=== PATIENT | male | born 1985 | race Caucasian/White ===

== ENCOUNTER 2017-03-10 19:38 | Inpatient (IN) | payer OTHER ==
[2017-03-10 21:28] VITALS: BMI 23.7
--- NOTE | 2017-03-10 22:01 | HP ---
COWS - Scale Resting Pulse: 0= [place] 80 or Below (+) Sweatin= Chills/Flushing Restless Observation: 3= Extraneous Movement Pupil Size: 0= Normal to Room Light Bone or Joint Aches: 2= Severe Diffuse Aches Runny Nose/ Eye Tearin= Runny Nose/Eyes GI Upset > 30mins: 2= Nausea/Diarrhea Tremor Observation: 2= Slight Tremor Visible Yawning Observation: 1= 1-2x During Session Anxiety or Irritability: 2=Irritable/Anxious Goose Flesh Skin: 0=Smooth Skin COWS Score: 15 Admission ROS S - HPI Chief Complaint: WITHDRAWAL SX Allergies/Adverse Reactions: Allergies Allergy/AdvReac Type Severity Reaction Status Date / Time No Known Drug Allergies Allergy Verified 03/10/17 23:56 History of Present Illness: 31 YEARS OLD MALE WITH LONG HISTORY OF HEROIN DEPENDENCE HAS DEPRESSION IS ADMITTED TO DETOX Exam Limitations: No Limitations - Ebola screening Have you traveled outside of the country in the last 21 days: No Have you had contact with anyone from an Ebola affected area: No Have you been sick,other than usual withdrawal symptoms: No Do you have a fever: No - Review of Systems Constitutional: Changes in sleep, Weight Stable EENT: reports: No Symptoms Reported Respiratory: reports: No Symptoms reported Cardiac: reports: No Symptoms Reported GI: reports: Diarrhea, Nausea, Poor Fluid Intake, Abdominal cramping : reports: No Symptoms Reported Musculoskeletal: reports: Back Pain, Joint Pain, Muscle Pain, Neck Pain Integumentary: reports: No Symptoms Reported Neuro: reports: Tremors Endocrine: reports: No Symptoms Reported Hematology: reports: No Symptoms Reported Psychiatric: reports: Judgement Intact, Orientated x3, Anxious, Depressed Other Systems: Reviewed and Negative Patient History - Patient Medical History Hx Anemia: No Hx Asthma: No (currently not on treatment) Hx Chronic Obstructive Pulmonary Disease (COPD): No Hx Cancer: No Hx Cardiac Disorders: No Hx Congestive Heart Failure: No Hx Hypertension: No Hx Hypercholesterolemia: No Hx Pacemaker: No HX Cerebrovascular Accident: No Hx Seizures: No Hx Dementia: No Hx Diabetes: No Hx Gastrointestinal Disorders: No Hx Liver Disease: No Hx Genitourinary Disorders: No Hx Sexually Transmitted Disorders: No Hx Renal Disease (ESRD): No Hx Thyroid Disease: No Hx Human Immunodeficiency Virus (HIV): No Hx Hepatitis C: No Hx Depression: Yes Hx Suicide Attempt: No Hx Bipolar Disorder: No Hx Schizophrenia: No - Patient Surgical History Past Surgical History: No Hx Neurologic Surgery: No Hx Cataract Extraction: No Hx Cardiac Surgery: No Hx Lung Surgery: No Hx Breast Surgery: No Hx Breast Biopsy: No Hx Abdominal Surgery: No Hx Appendectomy: No Hx Cholecystectomy: No Hx Genitourinary Surgery: No Hx Orthopedic Surgery: No - PPD History Previous Implant?: Yes Documented Results: Negative w/proof Implanted On Prior [facility] Admission?: Yes Date: 01/02/12 Results: 0 mm PPD to be Administered?: Yes - Smoking Cessation Smoking history: Former smoker Have you smoked in the past 12 months: No Aproximately how many cigarettes per day: 0 If you are a former smoker, when did you quit?: 02/05/2012 Cigars Per Day: 0 Hx Chewing Tobacco Use: No Initiated information on smoking cessation: No - Substance & Tx. History Hx Alcohol Use: No Hx Substance Use: Yes Substance Use Type: Opiates Hx Substance Use Treatment: Yes (2012 [facility] - Substances Abused Heroin Route: Inhalation Frequency: Daily Amount used: 4 BUNDLES Age of first use: 16 Date of Last Use: 03/10/17 Family Disease History - Family Disease History Family Disease History: Diabetes: Mother Admission Physical Exam S - Vital Signs Vital Signs: Vital Signs - 24 hr 03/10/17 21:24 Temperature 98.7 F Pulse Rate 75 Respiratory 19 Rate Blood Pressure 133/96 - Physical General Appearance: Yes: Appropriately Dressed, Moderate Distress, Thin, Tremorous, Irritable, Sweating, Anxious HEENTM: Yes: Hearing grossly Normal, Normal ENT Inspection, Normocephalic, Normal Voice Respiratory: Yes: Chest Non-Tender, Lungs Clear, Normal Breath Sounds, No Respiratory Distress, No Accessory Muscle Use Neck: Yes: Supple, Trachea in good position Breast: Yes: Breasts Symetrical Cardiology: Yes: Regular Rhythm, Regular Rate, S1, S2 Abdominal: Yes: Non Tender, Soft, Increased Bowel Sounds Genitourinary: Yes: Within Normal Limits Back: Yes: Normal Inspection Musculoskeletal: Yes: full range of Motion, Gait Steady, Back pain, Muscle Pain Extremities: Yes: Normal Inspection, Normal Range of Motion, Non-Tender, Tremors Neurological: Yes: Fully Oriented, Alert, Motor Strength 5/5, Normal Response, Depressed Affect Integumentary: Yes: Warm Lymphatic: Yes: Within Normal Limits - Diagnostic (1) Opioid dependence with withdrawal Current Visit: Yes Status: Acute (2) Depression (emotion) Current Visit: Yes Status: Suspected Qualifiers: Depression Type: dysthymia Qualified Code(s): F34.1 - Dysthymic disorder (3) Chronic back pain Current Visit: Yes Status: Chronic Qualifiers: Back pain location: low back pain Back pain laterality: bilateral Sciatica presence: without sciatica Qualified Code(s): M54.5 - Low back pain; G89.29 - Other chronic pain; G89.29 - Other chronic pain Cleared for Admission [facility] - Detox or Rehab [facility] Level of Care: Medically Managed Detox Regimen/Protocol: Methadone [facility] Breath Alcohol Content Breath Alcohol Content: 0 Urine Drug Screen - Results Drug Screen Negative: No Urine Drug Screen Results: OPI-Opiates
[2017-03-10] MEDS ORDERED: ACETAMINOPHEN 325 MG TABLET (FP) PO PRN (22:20)
[2017-03-10] MEDS ORDERED: IBUPROFEN 400 MG TABLET (FP) PO PRN (22:20)
[2017-03-10] MEDS ORDERED: P-EPHED 60MG/TRIPROLIDI 2.5MG TABLET PO PRN (22:20)
[2017-03-10] MEDS ORDERED: diazePAM 5 MG TABLET PO PRN (22:20)
[2017-03-10] MEDS ORDERED: MENTHOL/PHENOL 1 EACH UD MM PRN (22:20)
[2017-03-10] MEDS ORDERED: MAG HYDROX/AL HYDROX/SIMETH 30 ML UNIT-DOSE CUP PO PRN (22:20)
[2017-03-10] MEDS ORDERED: MAGNESIUM CITRATE 300 ML BOTTLE PO PRN (22:20)
[2017-03-10] MEDS ORDERED: LOPERAMIDE HCL 2 MG CAPSULE PO PRN (22:20)
[2017-03-10] MEDS ORDERED: MAGNESIUM HYDROX 2400MG/30ML ORAL SUSPENSION 30 ML CUP PO PRN (22:20)
[2017-03-10] MEDS ORDERED: guaiFENesin/D-METHORPHAN HB 10 ML UNIT-DOSE CUPS PO PRN (22:20)
[2017-03-10] MEDS ORDERED: METHADONE HCL 10 MG TABLET (FOR DETOX USE ONLY) PO ONE ×2 (22:20→23:00)
[2017-03-11] MEDS ORDERED: METHADONE HCL 10 MG TABLET (FOR DETOX USE ONLY) PO ONE ×4 (00:04→23:00)
[2017-03-11] MEDS: diazePAM 5 MG TABLET PO PRN ×5 (00:48→22:07)
[2017-03-11] MEDS: GABAPENTIN 100 MG CAPSULE (FP) PO SCH ×4 (00:48→22:07)
--- NOTE | 2017-03-11 08:18 | CONSULT ---
[facility] Psychiatric Consult - Data Date of interview: 03/11/17 Admission source: [facility] Identifying data: This is 31 years old male with no psychiatric hospitalization hikstory biontoxicated with: Opioids Substance Abuse History: - Smoking Cessation. Smoking history: Former smoker. Have you smoked in the past 12 months: No. Aproximately how many cigarettes per day: 0. If you are a former smoker, when did you quit?: 02/05/2012. Cigars Per Day: 0. Hx Chewing Tobacco Use: No. Initiated information on smoking cessation: No. - Substance & Tx. History. Hx Alcohol Use: No. Hx Substance Use: Yes. Substance Use Type: Opiates. Hx Substance Use Treatment: Yes (2012 [facility]). - Substances Abused. Heroin. Route: Inhalation. Frequency: Daily. Amount used: 4 BUNDLES. Age of first use: 16. Date of Last Use: 03/10/17 Medical History: LBP history Psychiatric History: Denies Physical/Sexual Abuse/Trauma History: Denies Additional Comment: Patient reports taking prior [facility] admission: Gabapentine 100mg po tid Mental Status Exam - Mental Status Exam Alert and Oriented to: Person Cognitive Function: Fair Patient Appearance: Unkempt Mood: Sad Affect: Mood Congruent Patient Behavior: Cooperative Speech Pattern: Appropriate Voice Loudness: Normal Thought Process: Circumstantial Thought Disorder: Being Controlled Hallucinations: Denies Suicidal Ideation: Denies Homicidal Ideation: Denies Insight/Judgement: Fair Sleep: Difficulty falling asleep Appetite: Fair Muscle strength/Tone: Mild Hypertonicity Gait/Station: Shuffling Additional Comments: Gabapentine 100mg po tid Psychiatric Findings - Problem List ([place] 1, 2,3) (1) Drug-induced mood disorder Current Visit: Yes Status: Suspected (2) Opioid dependence with withdrawal Current Visit: Yes Status: Acute (3) Nicotine dependence Current Visit: No Status: Active (4) Opioid dependence Current Visit: No Status: Active - Initial Treatment Plan Initial Treatment Plan: Gabapentine 100mg po tid
[2017-03-11 10:38] LABS: URINE APPEARANCE CLEAR; URINE BILIRUBIN NEGATIVE (NEGATIVE); URINE BLOOD NEGATIVE (NEGATIVE); URINE COLOR LTYELLOW; URINE GLUCOSE (UA) NEGATIVE (NEGATIVE); URINE KETONE NEGATIVE (NEGATIVE); URINE LEUK ESTERASE NEGATIVE (NEGATIVE); URINE NITRITE NEGATIVE (NEGATIVE); URINE PROTEIN NEGATIVE (NEGATIVE); URINE UROBILINOGEN NEGATIVE mg/dL (0.2-1.0)
[2017-03-11 10:42] LABS: HEMATOCRIT 41.4 % (35.4-49); HEMOGLOBIN 13.5 GM/dL (11.7-16.9); MCH 28.8 pg (25.7-33.7); MCHC 32.7 g/dl (32.0-35.9); MEAN CELL VOLUME 88.3 fl (80-96); MEAN PLT VOLUME 10.1 fl (7.5-11.1); PLATELET COUNT 187 K/MM3 (134-434); RBC 4.69 M/mm3 (4.00-5.60); WHITE BLOOD COUNT 8.3 K/mm3 (4.0-10.0)
[2017-03-11] MEDS: PRENATAL VITAMINS W/ FOLIC ACID TABLET (FP) PO SCH (10:47)
[2017-03-11 10:54] LABS: CHLORIDE 102 mmol/L (98-107); POTASSIUM 4.2 mmol/L (3.5-5.1); SODIUM 141 mmol/L (136-145)
[2017-03-11 11:05] LABS: ALK PHOS 65 U/L (45-117); ANION GAP 10 (8-16); BILIRUBIN,TOTAL 0.4 mg/dL (0.2-1.0); BLOOD UREA NITROGEN 14 mg/dL (7-18); CALCIUM 9.2 mg/dL (8.5-10.1); CO2 29 mmol/L (21-32); CREATININE 1.1 mg/dL (0.7-1.3); GLUCOSE,RANDOM 99 mg/dL (74-106); SGOT/AST 19 U/L (15-37); SGPT/ALT 28 U/L (12-78); TOT PROT 7.1 g/dl (6.4-8.2)
--- NOTE | 2017-03-11 12:36 | EKG ---
Test Reason : Blood Pressure : / mmHG Vent. Rate : 064 BPM Atrial Rate : 064 BPM P-R Int : 136 ms QRS Dur : 086 ms QT Int : 394 ms P-R-T Axes : 037 056 036 degrees QTc Int : 406 ms NORMAL SINUS RHYTHM NORMAL ECG NO PREVIOUS ECGS AVAILABLE Confirmed by ASHLEY SALAS MD ([id number]) on 03/11/2017 12:35:33 PM Referred By: Confirmed By:ASHLEY SALAS MD
--- NOTE | 2017-03-11 14:21 | PN ---
[facility] CIWA - CIWA Score Nausea/Vomitin-Mild Nausea/No Vomiting Muscle Tremors: 4-Moderate,w/Arms Extend Anxiety: 4-Mod. Anxious/Guarded Agitation: 0-Normal Activity Paroxysmal Sweats: 3 Orientation: 0-Oriented Tacttile Disturbances: 1-Very Mild Itch/Numbness Auditory Disturbances: 0-None Visual Disturbances: 1-Very Mild Sensitivity Headache: 0-None Present CIWA-Ar Total Score: 14 S Progress Note (SOAP) Subjective: Interrupted sleep, chills, body aches sweat Objective: 03/11/17 14:20 Vital Signs Temperature 97.7 F 03/11/17 09:28 Pulse Rate 73 03/11/17 09:28 Respiratory Rate 18 03/11/17 09:28 Blood Pressure 127/75 03/11/17 09:28 O2 Sat by Pulse Oximetry (%) Laboratory Last Values WBC 8.3 K/mm3 (4.0-10.0) 03/11/17 07:00 RBC 4.69 M/mm3 (4.00-5.60) 03/11/17 07:00 Hgb 13.5 GM/dL (11.7-16.9) 03/11/17 07:00 Hct 41.4 % (35.4-49) 03/11/17 07:00 MCV 88.3 fl (80-96) 03/11/17 07:00 MCH 28.8 pg (25.7-33.7) 03/11/17 07:00 MCHC 32.7 g/dl (32.0-35.9) 03/11/17 07:00 RDW 13.0 % (11.9-15.9) 03/11/17 07:00 Plt Count 187 K/MM3 (134-434) D 03/11/17 07:00 MPV 10.1 fl (7.5-11.1) 03/11/17 07:00 Sodium 141 mmol/L (136-145) 03/11/17 07:00 Potassium 4.2 mmol/L (3.5-5.1) 03/11/17 07:00 Chloride 102 mmol/L (98-107) 03/11/17 07:00 Carbon Dioxide 29 mmol/L (21-32) 03/11/17 07:00 Anion Gap 10 (8-16) 03/11/17 07:00 BUN 14 mg/dL (7-18) 03/11/17 07:00 Creatinine 1.1 mg/dL (0.7-1.3) D 03/11/17 07:00 Creat Clearance w eGFR > 60 (>60) 03/11/17 07:00 Random Glucose 99 mg/dL (74-106) 03/11/17 07:00 Calcium 9.2 mg/dL (8.5-10.1) 03/11/17 07:00 Total Bilirubin 0.4 mg/dL (0.2-1.0) D 03/11/17 07:00 AST 19 U/L (15-37) 03/11/17 07:00 ALT 28 U/L (12-78) D 03/11/17 07:00 Alkaline Phosphatase 65 U/L (45-117) 03/11/17 07:00 Total Protein 7.1 g/dl (6.4-8.2) 03/11/17 07:00 Albumin 4.0 g/dl (3.4-5.0) 03/11/17 07:00 Urine Color Ltyellow 03/11/17 07:00 Urine Appearance Clear 03/11/17 07:00 Urine pH 6.0 (5.0-8.0) 03/11/17 07:00 Ur Specific [place] 1.018 (1.001-1.035) 03/11/17 07:00 Urine Protein Negative (NEGATIVE) 03/11/17 07:00 Urine Glucose (UA) Negative (NEGATIVE) 03/11/17 07:00 Urine Ketones Negative (NEGATIVE) 03/11/17 07:00 Urine Blood Negative (NEGATIVE) 03/11/17 07:00 Urine Nitrite Negative (NEGATIVE) 03/11/17 07:00 Urine Bilirubin Negative (NEGATIVE) 03/11/17 07:00 Urine Urobilinogen Negative mg/dL (0.2-1.0) 03/11/17 07:00 Ur Leukocyte Esterase Negative (NEGATIVE) 03/11/17 07:00 Labs noted Assessment: 03/11/17 14:20 AOx3 ambulating no distress withdrawal symptoms Plan: continue detox increase fluids
[2017-03-11] MEDS: THIAMINE HCL 100 MG TABLET (FP) PO SCH (22:07)
[2017-03-12] MEDS: GABAPENTIN 100 MG CAPSULE (FP) PO SCH ×3 (05:50→22:06)
[2017-03-12] MEDS: diazePAM 5 MG TABLET PO PRN ×4 (05:50→22:06)
[2017-03-12] MEDS ORDERED: diphenhydrAMINE HCL 50 MG CAPSULE PO PRN (08:59)
[2017-03-12] MEDS ORDERED: METHADONE HCL 10 MG TABLET (FOR DETOX USE ONLY) PO ONE (10:00)
[2017-03-12] MEDS ORDERED: METHADONE HCL 5 MG TABLET (FOR DETOX USE ONLY) PO ONE (10:00)
[2017-03-12] MEDS: PRENATAL VITAMINS W/ FOLIC ACID TABLET (FP) PO SCH (10:29)
--- NOTE | 2017-03-12 10:35 | PN ---
[facility] COWS - Scale Resting Pulse: 0= [place] 80 or Below Sweatin=Flushed/Facial Moisture Restless Observation: 1= Difficult to Sit Still Pupil Size: 0= Normal to Room Light Bone or Joint Aches: 2= Severe Diffuse Aches Runny Nose/ Eye Tearin= Nasal Congestion GI Upset > 30mins: 0= None Tremor Observation of Outstretched Hands: 2= Slight Tremor Visible Yawning Observation: 2= >3x During Session Anxiety or Irritability: 2=Irritable/Anxious Goose Flesh Skin: 0=Smooth Skin COWS Score: 12 [facility] Progress Note (SOAP) Subjective: interrupted sleep/insomnia agitation body aches sweats Objective: 03/12/17 10:34 Vital Signs Temperature 97.3 F L 03/12/17 07:37 Pulse Rate 59 L 03/12/17 07:37 Respiratory Rate 16 03/12/17 07:37 Blood Pressure 149/86 03/12/17 07:37 O2 Sat by Pulse Oximetry (%) Laboratory Tests 03/11/17 03/11/17 03/11/17 07:00 07:00 07:00 WBC 8.3 RBC 4.69 Hgb 13.5 Hct 41.4 MCV 88.3 MCH 28.8 MCHC 32.7 RDW 13.0 Plt Count 187 D MPV 10.1 Sodium 141 Potassium 4.2 Chloride 102 Carbon Dioxide 29 Anion Gap 10 BUN 14 Creatinine 1.1 D Creat Clearance w eGFR > 60 Random Glucose 99 Calcium 9.2 Total Bilirubin 0.4 D AST 19 ALT 28 D Alkaline Phosphatase 65 Total Protein 7.1 Albumin 4.0 Urine Color Urine Appearance Urine pH Ur Specific [place] Urine Protein Urine Glucose (UA) Urine Ketones Urine Blood Urine Nitrite Urine Bilirubin Urine Urobilinogen Ur Leukocyte Esterase RPR Titer Nonreactive 03/11/17 07:00 WBC RBC Hgb Hct MCV MCH MCHC RDW Plt Count MPV Sodium Potassium Chloride Carbon Dioxide Anion Gap BUN Creatinine Creat Clearance w eGFR Random Glucose Calcium Total Bilirubin AST ALT Alkaline Phosphatase Total Protein Albumin Urine Color Ltyellow Urine Appearance Clear Urine pH 6.0 Ur Specific [place] 1.018 Urine Protein Negative Urine Glucose (UA) Negative Urine Ketones Negative Urine Blood Negative Urine Nitrite Negative Urine Bilirubin Negative Urine Urobilinogen Negative Ur Leukocyte Esterase Negative RPR Titer aaox3 ambulating no acute distress Assessment: 03/12/17 10:34 withdrawal sx Plan: continue detox increase fluids benadryl 50mg prn
--- NOTE | 2017-03-12 10:38 | PN ---
Psychiatric Progress Note Vital Signs: Vital Signs Period Temp Pulse Resp BP Sys/[place] Pulse Ox Last 24 Hr 97.3 F-98.2 F 59-89 16-18 133-149/76-86 Date of Session: 03/12/17 Chief Complaint:: " I need something to sleep." HPI: Pt. is a 31 year old male admitted to for opioid dependence. ROS: Unremarkable Current Medications: Active Medications Generic Name Dose Route Start Last Admin Trade Name Freq PRN Reason Stop Dose Admin Acetaminophen 650 mg 03/10/17 22:20 Tylenol - PO Q4H PRN FEVER Al Hydroxide/Mg Hydroxide 30 ml 03/10/17 22:20 Mylanta Oral Suspension - PO Q6H PRN DYSPEPSIA Diazepam 10 mg 03/11/17 00:04 03/12/17 10:30 Valium - PO 03/14/17 00:03 10 mg Q4H PRN Administration WITHDRAWAL(CONT SUBST) Diphenhydramine HCl 50 mg 03/12/17 08:59 Benadryl - PO HS PRN INSOMNIA Eucalyptus/Menthol/Phenol/Sorbitol 1 each 03/10/17 22:20 Cepastat Lozenge - MM Q4H PRN SORE THROAT Gabapentin 100 mg 03/10/17 22:45 03/12/17 05:50 Neurontin - PO 100 mg TID LEAH Administration Guaifenesin 10 ml 03/10/17 22:20 Robitussin Dm - PO Q6H PRN COUGH Hydroxyzine Pamoate 50 mg 03/11/17 11:50 Vistaril - PO Q6H PRN FOR ITCHING Ibuprofen 400 mg 03/10/17 22:20 03/11/17 14:25 Motrin - PO 400 mg Q6H PRN Administration PAIN LEVEL 4-6 Loperamide HCl 4 mg 03/10/17 22:20 Imodium - PO Q6H PRN DIARRHEA Magnesium Citrate 300 ml 03/10/17 22:20 Citroma - PO Q48H PRN CONSTIPATION Magnesium Hydroxide 30 ml 03/10/17 22:20 Milk Of Magnesia - PO DAILY PRN CONSTIPATION Methadone HCl 15 mg 03/13/17 10:00 Dolophine - PO 03/13/17 10:01 ONCE ONE Methadone HCl 5 mg 03/16/17 06:00 Dolophine - PO 03/16/17 06:01 ONCE@0600 ONE Methadone HCl 15 mg 03/14/17 10:00 Dolophine - PO 03/14/17 10:01 ONCE ONE Methadone HCl 10 mg 03/15/17 10:00 Dolophine - PO 03/15/17 10:01 ONCE ONE Multivit/Folic Acid/Iron 1 tab 03/11/17 10:00 03/12/17 10:29 Vitamins (Sjr) - PO 1 tab DAILY LEAH Administration Pseudoephedrine/Triprolidine 1 combo 03/10/17 22:20 03/12/17 10:31 Actifed - PO 1 combo TID PRN Administration NASAL CONGESTION Thiamine HCl 100 mg 03/11/17 22:00 03/11/17 22:07 Vitamin B1 - PO 100 mg HS LEAH Administration Medication(s) Change(s): Yes. Benadryl 50mg Current Side Effect: No Lab tests ordered: No Lab tests reviewed: Yes Provider note:: [facility] Worker approached patient concerning psychiatric reconsultation. Pt. requesting a sleep aid. Benadryl 50mg qhs ordered. Benefits and side effects discussed. Verbal consent given. Will continue to monitor. Total face to face time:: 15 Mental Status Exam - Mental Status Exam Alert and Oriented to: Time, Place, Person Cognitive Function: Good Patient Appearance: Well Groomed Mood: Hopeful, Euthymic Affect: Mood Congruent Patient Behavior: Fatigued Speech Pattern: Appropriate Voice Loudness: Normal Thought Process: Goal Oriented Thought Disorder: Not Present Hallucinations: Denies Suicidal Ideation: Denies Homicidal Ideation: Denies Insight/Judgement: Poor Sleep: Poorly Appetite: Fair Muscle strength/Tone: Normal Gait/Station: Normal Psychiatric Treatment Plan - Problem List (1) Opioid dependence with withdrawal Current Visit: Yes (2) Nicotine dependence Current Visit: Yes (3) Insomnia Current Visit: Yes
[2017-03-12] MEDS: THIAMINE HCL 100 MG TABLET (FP) PO SCH (22:06)
[2017-03-12] MEDS: hydrOXYzine PAMOATE 50 MG CAPSULE (FP) PO PRN (22:07)
[2017-03-13] MEDS: GABAPENTIN 100 MG CAPSULE (FP) PO SCH ×3 (05:42→22:20)
[2017-03-13] MEDS: diazePAM 5 MG TABLET PO PRN ×4 (05:43→22:21)
[2017-03-13] MEDS ORDERED: METHADONE HCL 5 MG TABLET (FOR DETOX USE ONLY) PO ONE ×2 (10:00)
[2017-03-13] MEDS: PRENATAL VITAMINS W/ FOLIC ACID TABLET (FP) PO SCH (10:25)
--- NOTE | 2017-03-13 14:07 | PN ---
[facility] Progress Note (SOAP) Subjective: Interrupted sleep, chills, sweat, body aches Objective: 03/13/17 14:04 Last Vital Signs Temp Pulse Resp BP Pulse Ox 97.5 F L 89 18 112/72 03/13/17 10:29 03/13/17 10:29 03/13/17 10:29 03/13/17 10:29 Laboratory Last Values WBC 8.3 K/mm3 (4.0-10.0) 03/11/17 07:00 RBC 4.69 M/mm3 (4.00-5.60) 03/11/17 07:00 Hgb 13.5 GM/dL (11.7-16.9) 03/11/17 07:00 Hct 41.4 % (35.4-49) 03/11/17 07:00 MCV 88.3 fl (80-96) 03/11/17 07:00 MCH 28.8 pg (25.7-33.7) 03/11/17 07:00 MCHC 32.7 g/dl (32.0-35.9) 03/11/17 07:00 RDW 13.0 % (11.9-15.9) 03/11/17 07:00 Plt Count 187 K/MM3 (134-434) D 03/11/17 07:00 MPV 10.1 fl (7.5-11.1) 03/11/17 07:00 Sodium 141 mmol/L (136-145) 03/11/17 07:00 Potassium 4.2 mmol/L (3.5-5.1) 03/11/17 07:00 Chloride 102 mmol/L (98-107) 03/11/17 07:00 Carbon Dioxide 29 mmol/L (21-32) 03/11/17 07:00 Anion Gap 10 (8-16) 03/11/17 07:00 BUN 14 mg/dL (7-18) 03/11/17 07:00 Creatinine 1.1 mg/dL (0.7-1.3) D 03/11/17 07:00 Creat Clearance w eGFR > 60 (>60) 03/11/17 07:00 Random Glucose 99 mg/dL (74-106) 03/11/17 07:00 Calcium 9.2 mg/dL (8.5-10.1) 03/11/17 07:00 Total Bilirubin 0.4 mg/dL (0.2-1.0) D 03/11/17 07:00 AST 19 U/L (15-37) 03/11/17 07:00 ALT 28 U/L (12-78) D 03/11/17 07:00 Alkaline Phosphatase 65 U/L (45-117) 03/11/17 07:00 Total Protein 7.1 g/dl (6.4-8.2) 03/11/17 07:00 Albumin 4.0 g/dl (3.4-5.0) 03/11/17 07:00 Urine Color Ltyellow 03/11/17 07:00 Urine Appearance Clear 03/11/17 07:00 Urine pH 6.0 (5.0-8.0) 03/11/17 07:00 Ur Specific [place] 1.018 (1.001-1.035) 03/11/17 07:00 Urine Protein Negative (NEGATIVE) 03/11/17 07:00 Urine Glucose (UA) Negative (NEGATIVE) 03/11/17 07:00 Urine Ketones Negative (NEGATIVE) 03/11/17 07:00 Urine Blood Negative (NEGATIVE) 03/11/17 07:00 Urine Nitrite Negative (NEGATIVE) 03/11/17 07:00 Urine Bilirubin Negative (NEGATIVE) 03/11/17 07:00 Urine Urobilinogen Negative mg/dL (0.2-1.0) 03/11/17 07:00 Ur Leukocyte Esterase Negative (NEGATIVE) 03/11/17 07:00 RPR Titer Nonreactive (NONREACTIVE) 03/11/17 07:00 Labs noted Assessment: 03/13/17 14:05 AOx3 ambulating without deficits no distress Plan: continue detox
[2017-03-13] MEDS: THIAMINE HCL 100 MG TABLET (FP) PO SCH (22:20)
[2017-03-13] MEDS: hydrOXYzine PAMOATE 50 MG CAPSULE (FP) PO PRN (22:21)
[2017-03-14] MEDS: GABAPENTIN 100 MG CAPSULE (FP) PO SCH ×3 (05:40→22:26)
[2017-03-14] MEDS: hydrOXYzine PAMOATE 50 MG CAPSULE (FP) PO PRN ×3 (05:41→22:27)
[2017-03-14] MEDS ORDERED: METHADONE HCL 10 MG TABLET (FOR DETOX USE ONLY) PO ONE (10:00)
[2017-03-14] MEDS ORDERED: METHADONE HCL 5 MG TABLET (FOR DETOX USE ONLY) PO ONE (10:00)
[2017-03-14] MEDS: PRENATAL VITAMINS W/ FOLIC ACID TABLET (FP) PO SCH (10:17)
--- NOTE | 2017-03-14 12:48 | PN ---
S Progress Note (SOAP) Subjective: mild joints ache, irritability, agitation Objective: 03/14/17 12:48 Vital Signs Temperature 96.3 F L 03/14/17 10:26 Pulse Rate 76 03/14/17 10:26 Respiratory Rate 18 03/14/17 10:26 Blood Pressure 114/71 03/14/17 10:26 O2 Sat by Pulse Oximetry (%) Laboratory Last Values WBC 8.3 K/mm3 (4.0-10.0) 03/11/17 07:00 RBC 4.69 M/mm3 (4.00-5.60) 03/11/17 07:00 Hgb 13.5 GM/dL (11.7-16.9) 03/11/17 07:00 Hct 41.4 % (35.4-49) 03/11/17 07:00 MCV 88.3 fl (80-96) 03/11/17 07:00 MCH 28.8 pg (25.7-33.7) 03/11/17 07:00 MCHC 32.7 g/dl (32.0-35.9) 03/11/17 07:00 RDW 13.0 % (11.9-15.9) 03/11/17 07:00 Plt Count 187 K/MM3 (134-434) D 03/11/17 07:00 MPV 10.1 fl (7.5-11.1) 03/11/17 07:00 Sodium 141 mmol/L (136-145) 03/11/17 07:00 Potassium 4.2 mmol/L (3.5-5.1) 03/11/17 07:00 Chloride 102 mmol/L (98-107) 03/11/17 07:00 Carbon Dioxide 29 mmol/L (21-32) 03/11/17 07:00 Anion Gap 10 (8-16) 03/11/17 07:00 BUN 14 mg/dL (7-18) 03/11/17 07:00 Creatinine 1.1 mg/dL (0.7-1.3) D 03/11/17 07:00 Creat Clearance w eGFR > 60 (>60) 03/11/17 07:00 Random Glucose 99 mg/dL (74-106) 03/11/17 07:00 Calcium 9.2 mg/dL (8.5-10.1) 03/11/17 07:00 Total Bilirubin 0.4 mg/dL (0.2-1.0) D 03/11/17 07:00 AST 19 U/L (15-37) 03/11/17 07:00 ALT 28 U/L (12-78) D 03/11/17 07:00 Alkaline Phosphatase 65 U/L (45-117) 03/11/17 07:00 Total Protein 7.1 g/dl (6.4-8.2) 03/11/17 07:00 Albumin 4.0 g/dl (3.4-5.0) 03/11/17 07:00 Urine Color Ltyellow 03/11/17 07:00 Urine Appearance Clear 03/11/17 07:00 Urine pH 6.0 (5.0-8.0) 03/11/17 07:00 Ur Specific [place] 1.018 (1.001-1.035) 03/11/17 07:00 Urine Protein Negative (NEGATIVE) 03/11/17 07:00 Urine Glucose (UA) Negative (NEGATIVE) 03/11/17 07:00 Urine Ketones Negative (NEGATIVE) 03/11/17 07:00 Urine Blood Negative (NEGATIVE) 03/11/17 07:00 Urine Nitrite Negative (NEGATIVE) 03/11/17 07:00 Urine Bilirubin Negative (NEGATIVE) 03/11/17 07:00 Urine Urobilinogen Negative mg/dL (0.2-1.0) 03/11/17 07:00 Ur Leukocyte Esterase Negative (NEGATIVE) 03/11/17 07:00 RPR Titer Nonreactive (NONREACTIVE) 03/11/17 07:00 lab noted Assessment: 03/14/17 12:48 withdrawal sx Plan: continue detox
[2017-03-14] MEDS: THIAMINE HCL 100 MG TABLET (FP) PO SCH (22:26)
[2017-03-15] MEDS: GABAPENTIN 100 MG CAPSULE (FP) PO SCH (05:12)
[2017-03-15] MEDS ORDERED: METHADONE HCL 5 MG TABLET (FOR DETOX USE ONLY) PO ONE (06:00)
[2017-03-15 09:25] VITALS: BP 125/75; PULSE 70; TEMP 96.8
[2017-03-15] MEDS ORDERED: METHADONE HCL 10 MG TABLET (FOR DETOX USE ONLY) PO ONE (10:00)
[2017-03-15] MEDS: PRENATAL VITAMINS W/ FOLIC ACID TABLET (FP) PO SCH (10:33)
--- NOTE | 2017-03-15 15:38 | DS ---
[facility] Detox Discharge Summary Admission Date: 03/10/17 Discharge Date: 03/15/17 - History Additional Comments: Pt is slated for discharge tomorrow. Pt stated to this provider that he wanted to leave, to go "do something about a job I am working on". pt left the unit AMA Pt is A & O x 3, not in acute distress Pertinent Past History: chronic back pain - Physical Exam Results Vital Signs: Vital Signs Temperature 96.8 F L 03/15/17 09:24 Pulse Rate 70 03/15/17 09:24 Respiratory Rate 18 03/15/17 09:24 Blood Pressure 125/75 03/15/17 09:24 O2 Sat by Pulse Oximetry (%) Pertinent Admission Physical Exam Findings: withdrawal sx - Medication Discharge Medications: Ambulatory Orders Gabapentin [Neurontin -] 100 mg PO Q8H 03/10/17 Tizanidine HCl 4 mg PO BID 03/10/17 - Diagnosis (1) Opioid dependence with withdrawal Status: Acute (2) Chronic back pain Status: Chronic Qualifiers: Back pain location: low back pain Back pain laterality: bilateral Sciatica presence: without sciatica Qualified Code(s): M54.5 - Low back pain; G89.29 - Other chronic pain; G89.29 - Other chronic pain - AMA Did Patient Leave Against Medical Advice: Yes
[2017-03-16] MEDS ORDERED: METHADONE HCL 5 MG TABLET (FOR DETOX USE ONLY) PO ONE (06:00)
== END 2017-03-15 12:50 | disposition left against medical advice (07) | DRG 894 ==
LOC: YASAS 19:38 → Y6N 23:26
PROVIDERS: ADMIT Internal Medicine; ATTEND Internal Medicine
PROC: HZ2ZZZZ Detoxification Services for Substance Abuse Treatment (ICD-10-PCS; principal; 2017-03-10)
DX: F11.23 Opioid dependence with withdrawal (principal); F17.210 Nicotine dependence, cigarettes, uncomplicated; F19.24 Other psychoactive substance dependence with psychoactive substance-induced mood disorder; F34.1 Dysthymic disorder; G47.00 Insomnia, unspecified; M54.5 Low back pain; G89.29 Other chronic pain
CPT/HCPCS: 36415; 80053; 81003; 85027; 86593; 93005; 93010

== ENCOUNTER 2017-04-03 15:17 | Inpatient (IN) | payer OTHER ==
[2017-04-03 16:50] VITALS: BMI 23.7
--- NOTE | 2017-04-03 19:34 | HP ---
COWS - Scale Resting Pulse: 1= [place] 81-100 Sweatin=Flushed/Facial Moisture Restless Observation: 3= Extraneous Movement Pupil Size: 1= Pupils >than Normal Bone or Joint Aches: 0= None Runny Nose/ Eye Tearin= Runny Nose/Eyes GI Upset > 30mins: 2= Nausea/Diarrhea Tremor Observation: 2= Slight Tremor Visible Yawning Observation: 0= None Anxiety or Irritability: 1=Feels Anxious/Irritable Goose Flesh Skin: 0=Smooth Skin COWS Score: 14 Admission ROS S - HPI Chief Complaint: ""i am just trying to get clean again" Allergies/Adverse Reactions: Allergies Allergy/AdvReac Type Severity Reaction Status Date / Time No Known Drug Allergies Allergy Verified 03/10/17 23:56 History of Present Illness: 32 y/o male with a long period of opiates, pain killers presents here for detox today. pt states he margaux uses heroin now. completed detox last month here at [facility] and states "I just relapsed". Endorses 5 years of sobriety in the past. Pt has also had rehab in the past. Denies any medical, surgical nor psychiatric history. Exam Limitations: No Limitations - Ebola screening Have you traveled outside of the country in the last 21 days: No (N) Have you had contact with anyone from an Ebola affected area: No Have you been sick,other than usual withdrawal symptoms: No Do you have a fever: No - Review of Systems Constitutional: Chills, Diaphoresis EENT: reports: Nose Congestion Cardiac: reports: No Symptoms Reported GI: reports: Nausea Musculoskeletal: reports: No Symptoms Reported Integumentary: reports: Flushing Endocrine: reports: Flushing Hematology: reports: No Symptoms Reported Psychiatric: reports: No Sypmtoms Reported, Judgement Intact, Orientated x3 Patient History - Patient Medical History Hx Anemia: No Hx Asthma: No (currently not on treatment) Hx Chronic Obstructive Pulmonary Disease (COPD): No Hx Cancer: No Hx Cardiac Disorders: No Hx Congestive Heart Failure: No Hx Hypertension: No Hx Hypercholesterolemia: No Hx Pacemaker: No HX Cerebrovascular Accident: No Hx Seizures: No Hx Dementia: No Hx Diabetes: No Hx Gastrointestinal Disorders: No Hx Liver Disease: No Hx Genitourinary Disorders: No Hx Sexually Transmitted Disorders: No Hx Renal Disease (ESRD): No Hx Thyroid Disease: No Hx Human Immunodeficiency Virus (HIV): No Hx Hepatitis C: No Hx Depression: Yes Hx Suicide Attempt: No Hx Bipolar Disorder: No Hx Schizophrenia: No - Patient Surgical History Past Surgical History: No Hx Neurologic Surgery: No Hx Cataract Extraction: No Hx Cardiac Surgery: No Hx Lung Surgery: No Hx Breast Surgery: No Hx Breast Biopsy: No Hx Abdominal Surgery: No Hx Appendectomy: No Hx Cholecystectomy: No Hx Genitourinary Surgery: No Hx Section: No Hx Orthopedic Surgery: No Hx Hysterectomy: No Anesthesia Reaction: No - PPD History Previous Implant?: Yes Date: 01/02/12 Results: 0 mm PPD to be Administered?: No - Reproductive History Patient : No - Smoking Cessation Smoking history: Former smoker Have you smoked in the past 12 months: No Aproximately how many cigarettes per day: 0 If you are a former smoker, when did you quit?: 02/05/2012 Cigars Per Day: 0 Hx Chewing Tobacco Use: No Initiated information on smoking cessation: Yes 'Breaking Loose' booklet given: 04/03/17 - Substance & Tx. History Hx Alcohol Use: No Hx Substance Use: Yes Substance Use Type: Heroin - Substances Abused Heroin Route: Inhalation Frequency: Daily Amount used: 4 - 5 bundles Age of first use: 16 Date of Last Use: 04/02/17 Family Disease History - Family Disease History Family Disease History: Diabetes: Mother (HTN), Heart Disease: Mother, Other: Father (none), Brother (Alive, none), Sister (Alive, none) Admission Physical Exam BHS - Vital Signs Vital Signs: Vital Signs - 24 hr 04/03/17 16:48 Temperature 98.9 F Pulse Rate 97 H Respiratory 18 Rate Blood Pressure 141/80 - Physical General Appearance: Yes: Appropriately Dressed, Mild Distress HEENTM: Yes: Nasal Congestion Respiratory: Yes: Chest Non-Tender, Lungs Clear, Normal Breath Sounds, No Respiratory Distress Neck: Yes: No masses,lesions,Nodules Breast: Yes: Breast Exam Deferred Cardiology: Yes: Regular Rhythm, Regular Rate, S1, S2 Abdominal: Yes: Non Tender, Soft Genitourinary: Yes: Within Normal Limits Musculoskeletal: Yes: Within Normal Limits, Gait Steady Extremities: Yes: Within Normal Limits Neurological: Yes: Within Normal Limits Integumentary: Yes: Normal Color, Warm Lymphatic: Yes: Within Normal Limits - Diagnostic (1) Opioid dependence with withdrawal Current Visit: No Status: Acute (2) Drug-induced mood disorder Current Visit: No Status: Suspected Cleared for Admission [facility] - Detox or Rehab [facility] Level of Care: Medically Managed Detox Regimen/Protocol: Methadone [facility] Breath Alcohol Content Breath Alcohol Content: 0 Urine Drug Screen - Results Drug Screen Negative: No Urine Drug Screen Results: OPI-Opiates, OXY-Oxycodone
[2017-04-03] MEDS ORDERED: METHADONE HCL 10 MG TABLET (FOR DETOX USE ONLY) PO ONE ×3 (19:44→23:00)
[2017-04-03] MEDS ORDERED: hydrOXYzine PAMOATE 50 MG CAPSULE (FP) PO PRN (19:44)
[2017-04-03] MEDS ORDERED: P-EPHED 60MG/TRIPROLIDI 2.5MG TABLET PO PRN (19:44)
[2017-04-03] MEDS ORDERED: LOPERAMIDE HCL 2 MG CAPSULE PO PRN (19:44)
[2017-04-03] MEDS ORDERED: ACETAMINOPHEN 325 MG TABLET (FP) PO PRN (19:44)
[2017-04-03] MEDS ORDERED: MAG HYDROX/AL HYDROX/SIMETH 30 ML UNIT-DOSE CUP PO PRN (19:44)
[2017-04-03] MEDS ORDERED: MAGNESIUM HYDROX 2400MG/30ML ORAL SUSPENSION 30 ML CUP PO PRN (19:44)
[2017-04-03] MEDS ORDERED: guaiFENesin/D-METHORPHAN HB 10 ML UNIT-DOSE CUPS PO PRN (19:44)
[2017-04-03] MEDS ORDERED: MAGNESIUM CITRATE 300 ML BOTTLE PO PRN (19:44)
[2017-04-03] MEDS ORDERED: IBUPROFEN 400 MG TABLET (FP) PO PRN (19:44)
[2017-04-03] MEDS ORDERED: MENTHOL/PHENOL 1 EACH UD MM PRN (19:44)
[2017-04-03] MEDS: diazePAM 5 MG TABLET PO PRN (21:55)
[2017-04-03] MEDS: THIAMINE HCL 100 MG TABLET (FP) PO SCH (21:56)
[2017-04-04] MEDS: diazePAM 5 MG TABLET PO PRN ×5 (05:39→23:10)
--- NOTE | 2017-04-04 08:38 | EKG ---
Test Reason : Blood Pressure : / mmHG Vent. Rate : 063 BPM Atrial Rate : 063 BPM P-R Int : 142 ms QRS Dur : 084 ms QT Int : 378 ms P-R-T Axes : 053 054 039 degrees QTc Int : 386 ms NORMAL SINUS RHYTHM WITH SINUS ARRHYTHMIA POSSIBLE LEFT ATRIAL ENLARGEMENT BORDERLINE ECG WHEN COMPARED WITH ECG OF 11-MAR-2017 00:36, T WAVE INVERSION NOW EVIDENT IN ANTERIOR LEADS Confirmed by KEREN LEVI, SONA ([id number]) on 04/04/2017 8:38:32 AM Referred By: Jerzy Poole Confirmed By:SONA VELIZ MD
--- NOTE | 2017-04-04 09:04 | PN ---
BHS COWS - Scale Resting Pulse: 0= [place] 80 or Below Sweatin= Chills/Flushing Restless Observation: 1= Difficult to Sit Still Pupil Size: 0= Normal to Room Light Bone or Joint Aches: 2= Severe Diffuse Aches Runny Nose/ Eye Tearin= Runny Nose/Eyes GI Upset > 30mins: 2= Nausea/Diarrhea Tremor Observation of Outstretched Hands: 2= Slight Tremor Visible Yawning Observation: 1= 1-2x During Session Anxiety or Irritability: 2=Irritable/Anxious Goose Flesh Skin: 0=Smooth Skin COWS Score: 13 BHS Progress Note (SOAP) Subjective: anxiety joint aches running nose yawning muscle aches Objective: 04/04/17 09:03 Vital Signs Temperature 97.2 F L 04/04/17 06:00 Pulse Rate 65 04/04/17 06:00 Respiratory Rate 18 04/04/17 06:00 Blood Pressure 123/57 04/04/17 06:00 O2 Sat by Pulse Oximetry (%) lab not available Assessment: 04/04/17 09:03 withdrawal sx Plan: continue detox
[2017-04-04] MEDS ORDERED: METHADONE HCL 10 MG TABLET (FOR DETOX USE ONLY) PO ONE (10:00)
[2017-04-04 10:09] LABS: URINE APPEARANCE CLEAR; URINE BILIRUBIN NEGATIVE (NEGATIVE); URINE BLOOD NEGATIVE (NEGATIVE); URINE COLOR YELLOW; URINE GLUCOSE (UA) NEGATIVE (NEGATIVE); URINE KETONE NEGATIVE (NEGATIVE); URINE LEUK ESTERASE NEGATIVE (NEGATIVE); URINE NITRITE NEGATIVE (NEGATIVE); URINE PROTEIN NEGATIVE (NEGATIVE); URINE UROBILINOGEN NEGATIVE mg/dL (0.2-1.0)
[2017-04-04] MEDS: PRENATAL VITAMINS W/ FOLIC ACID TABLET (FP) PO SCH (10:13)
[2017-04-04 10:19] LABS: HEMOGLOBIN 14.1 GM/dL (11.7-16.9); MCH 28.4 pg (25.7-33.7); MCHC 32.7 g/dl (32.0-35.9); MEAN CELL VOLUME 86.8 fl (80-96); MEAN PLT VOLUME 10.4 fl (7.5-11.1); PLATELET COUNT 184 K/MM3 (134-434); RBC 4.95 M/mm3 (4.00-5.60); RDW 13.2 % (11.9-15.9); WHITE BLOOD COUNT 8.4 K/mm3 (4.0-10.0)
--- NOTE | 2017-04-04 10:21 | CONSULT ---
[facility] Psychiatric Consult - Data Date of interview: 04/04/17 Admission source: Self-referred Identifying data: Mr Santiago is a 32 years old male seeking detox treatment for heroin Substance Abuse History: Reports history of heroin use. He started using herin at age 16, consumes 40-50 bags daily. Last used on 04/02/17 Medical History: Unremarkable except history of LBP Psychiatric History: Denies history of previous psychiatric treatment Physical/Sexual Abuse/Trauma History: Denies history of emotional, physical or sexual abuse as well as DV relationship Additional Comment: Reports history of one misdemeanor arrest. Denies being on probation currently Mental Status Exam - Mental Status Exam Alert and Oriented to: Time, Place, Person Cognitive Function: Fair Mood: Hopeful, Euthymic Affect: Appropriate Patient Behavior: Cooperative Speech Pattern: Clear Thought Process: Intact, Goal Oriented Thought Disorder: Not Present Hallucinations: Denies Suicidal Ideation: Denies Homicidal Ideation: Denies Insight/Judgement: Poor Sleep: Poorly Appetite: Good Muscle strength/Tone: Normal Gait/Station: Normal Psychiatric Findings - Problem List ([place] 1, 2,3) (1) Substance-induced sleep disorder Current Visit: Yes Status: Acute (2) Opioid dependence with withdrawal Current Visit: No Status: Acute (3) Chronic back pain Current Visit: No Status: Chronic Qualifiers: Back pain location: low back pain Back pain laterality: bilateral Sciatica presence: without sciatica Qualified Code(s): M54.5 - Low back pain; G89.29 - Other chronic pain; G89.29 - Other chronic pain - Initial Treatment Plan Initial Treatment Plan: 1) Start Ambien 10 mg po HS prn for insomnia. 2) Continue inpatient detoxification
[2017-04-04 10:25] LABS: ANION GAP 3 (8-16); BLOOD UREA NITROGEN 16 mg/dL (7-18); CALCIUM 8.9 mg/dL (8.5-10.1); CHLORIDE 104 mmol/L (98-107); CO2 32 mmol/L (21-32); GLUCOSE,RANDOM 87 mg/dL (74-106); POTASSIUM 4.5 mmol/L (3.5-5.1); SODIUM 139 mmol/L (136-145)
[2017-04-04 10:28] LABS: ALK PHOS 65 U/L (45-117); BILIRUBIN,TOTAL 0.5 mg/dL (0.2-1.0); CREATININE 1.2 mg/dL (0.7-1.3); SGOT/AST 16 U/L (15-37); SGPT/ALT 24 U/L (12-78); TOT PROT 6.9 g/dl (6.4-8.2)
[2017-04-04] MEDS: THIAMINE HCL 100 MG TABLET (FP) PO SCH (22:02)
[2017-04-04] MEDS: ZOLPIDEM TARTRATE 5 MG TABLET PO PRN (22:02)
[2017-04-05] MEDS ORDERED: METHADONE HCL 5 MG TABLET (FOR DETOX USE ONLY) PO ONE (10:00)
[2017-04-05] MEDS: diazePAM 5 MG TABLET PO PRN ×3 (10:11→22:16)
[2017-04-05] MEDS: PRENATAL VITAMINS W/ FOLIC ACID TABLET (FP) PO SCH (10:11)
--- NOTE | 2017-04-05 11:20 | PN ---
S COWS - Scale Resting Pulse: 0= [place] 80 or Below Sweatin= Chills/Flushing Restless Observation: 1= Difficult to Sit Still Pupil Size: 0= Normal to Room Light Bone or Joint Aches: 2= Severe Diffuse Aches Runny Nose/ Eye Tearin= Runny Nose/Eyes GI Upset > 30mins: 2= Nausea/Diarrhea Tremor Observation of Outstretched Hands: 1= Tremor [place], Not Seen Yawning Observation: 0= None Anxiety or Irritability: 2=Irritable/Anxious Goose Flesh Skin: 0=Smooth Skin COWS Score: 11 S Progress Note (SOAP) Subjective: joint aches sweat agitation irritable agitation Objective: 04/05/17 11:19 Vital Signs Temperature 97.3 F L 04/05/17 10:44 Pulse Rate 70 04/05/17 10:44 Respiratory Rate 20 04/05/17 10:44 Blood Pressure 112/81 04/05/17 10:44 O2 Sat by Pulse Oximetry (%) Laboratory Last Values WBC 8.4 K/mm3 (4.0-10.0) 04/04/17 08:00 RBC 4.95 M/mm3 (4.00-5.60) 04/04/17 08:00 Hgb 14.1 GM/dL (11.7-16.9) 04/04/17 08:00 Hct 43.0 % (35.4-49) 04/04/17 08:00 MCV 86.8 fl (80-96) 04/04/17 08:00 MCH 28.4 pg (25.7-33.7) 04/04/17 08:00 MCHC 32.7 g/dl (32.0-35.9) 04/04/17 08:00 RDW 13.2 % (11.9-15.9) 04/04/17 08:00 Plt Count 184 K/MM3 (134-434) 04/04/17 08:00 MPV 10.4 fl (7.5-11.1) 04/04/17 08:00 Sodium 139 mmol/L (136-145) 04/04/17 08:00 Potassium 4.5 mmol/L (3.5-5.1) 04/04/17 08:00 Chloride 104 mmol/L (98-107) 04/04/17 08:00 Carbon Dioxide 32 mmol/L (21-32) 04/04/17 08:00 Anion Gap 3 (8-16) L 04/04/17 08:00 BUN 16 mg/dL (7-18) 04/04/17 08:00 Creatinine 1.2 mg/dL (0.7-1.3) 04/04/17 08:00 Creat Clearance w eGFR > 60 (>60) 04/04/17 08:00 Random Glucose 87 mg/dL (74-106) 04/04/17 08:00 Calcium 8.9 mg/dL (8.5-10.1) 04/04/17 08:00 Total Bilirubin 0.5 mg/dL (0.2-1.0) D 04/04/17 08:00 AST 16 U/L (15-37) 04/04/17 08:00 ALT 24 U/L (12-78) 04/04/17 08:00 Alkaline Phosphatase 65 U/L (45-117) 04/04/17 08:00 Total Protein 6.9 g/dl (6.4-8.2) 04/04/17 08:00 Albumin 4.0 g/dl (3.4-5.0) 04/04/17 08:00 Urine Color Yellow 04/03/17 09:57 Urine Appearance Clear 04/03/17 09:57 Urine pH 6.0 (5.0-8.0) 04/03/17 09:57 Ur Specific [place] 1.024 (1.001-1.035) 04/03/17 09:57 Urine Protein Negative (NEGATIVE) 04/03/17 09:57 Urine Glucose (UA) Negative (NEGATIVE) 04/03/17 09:57 Urine Ketones Negative (NEGATIVE) 04/03/17 09:57 Urine Blood Negative (NEGATIVE) 04/03/17 09:57 Urine Nitrite Negative (NEGATIVE) 04/03/17 09:57 Urine Bilirubin Negative (NEGATIVE) 04/03/17 09:57 Urine Urobilinogen Negative mg/dL (0.2-1.0) 04/03/17 09:57 Ur Leukocyte Esterase Negative (NEGATIVE) 04/03/17 09:57 RPR Titer Nonreactive (NONREACTIVE) 04/04/17 08:00 lab noted Assessment: 04/05/17 11:20 withdrawal sx Plan: continue detox
[2017-04-05] MEDS: THIAMINE HCL 100 MG TABLET (FP) PO SCH (22:15)
[2017-04-05] MEDS: ZOLPIDEM TARTRATE 5 MG TABLET PO PRN (22:15)
[2017-04-06] MEDS: diazePAM 5 MG TABLET PO PRN ×3 (05:34→14:36)
[2017-04-06] MEDS ORDERED: METHADONE HCL 5 MG TABLET (FOR DETOX USE ONLY) PO ONE (10:00)
--- NOTE | 2017-04-06 10:20 | PN ---
BHS Progress Note (SOAP) Subjective: stated feeling little better today tolerates food and fluid well sweat tremor restlessness Objective: 04/06/17 10:20 Vital Signs Temperature 97.2 F L 04/06/17 06:23 Pulse Rate 59 L 04/06/17 06:23 Respiratory Rate 16 04/06/17 06:23 Blood Pressure 103/59 04/06/17 06:23 O2 Sat by Pulse Oximetry (%) Laboratory Last Values WBC 8.4 K/mm3 (4.0-10.0) 04/04/17 08:00 RBC 4.95 M/mm3 (4.00-5.60) 04/04/17 08:00 Hgb 14.1 GM/dL (11.7-16.9) 04/04/17 08:00 Hct 43.0 % (35.4-49) 04/04/17 08:00 MCV 86.8 fl (80-96) 04/04/17 08:00 MCH 28.4 pg (25.7-33.7) 04/04/17 08:00 MCHC 32.7 g/dl (32.0-35.9) 04/04/17 08:00 RDW 13.2 % (11.9-15.9) 04/04/17 08:00 Plt Count 184 K/MM3 (134-434) 04/04/17 08:00 MPV 10.4 fl (7.5-11.1) 04/04/17 08:00 Sodium 139 mmol/L (136-145) 04/04/17 08:00 Potassium 4.5 mmol/L (3.5-5.1) 04/04/17 08:00 Chloride 104 mmol/L (98-107) 04/04/17 08:00 Carbon Dioxide 32 mmol/L (21-32) 04/04/17 08:00 Anion Gap 3 (8-16) L 04/04/17 08:00 BUN 16 mg/dL (7-18) 04/04/17 08:00 Creatinine 1.2 mg/dL (0.7-1.3) 04/04/17 08:00 Creat Clearance w eGFR > 60 (>60) 04/04/17 08:00 Random Glucose 87 mg/dL (74-106) 04/04/17 08:00 Calcium 8.9 mg/dL (8.5-10.1) 04/04/17 08:00 Total Bilirubin 0.5 mg/dL (0.2-1.0) D 04/04/17 08:00 AST 16 U/L (15-37) 04/04/17 08:00 ALT 24 U/L (12-78) 04/04/17 08:00 Alkaline Phosphatase 65 U/L (45-117) 04/04/17 08:00 Total Protein 6.9 g/dl (6.4-8.2) 04/04/17 08:00 Albumin 4.0 g/dl (3.4-5.0) 04/04/17 08:00 Urine Color Yellow 04/03/17 09:57 Urine Appearance Clear 04/03/17 09:57 Urine pH 6.0 (5.0-8.0) 02 09:57 Ur Specific [place] 1.024 (1.001-1.035) 04/03/17 09:57 Urine Protein Negative (NEGATIVE) 04/03/17 09:57 Urine Glucose (UA) Negative (NEGATIVE) 04/03/17 09:57 Urine Ketones Negative (NEGATIVE) 04/03/17 09:57 Urine Blood Negative (NEGATIVE) 04/03/17 09:57 Urine Nitrite Negative (NEGATIVE) 04/03/17 09:57 Urine Bilirubin Negative (NEGATIVE) 04/03/17 09:57 Urine Urobilinogen Negative mg/dL (0.2-1.0) 02 09:57 Ur Leukocyte Esterase Negative (NEGATIVE) 04/03/17 09:57 RPR Titer Nonreactive (NONREACTIVE) 04/04/17 08:00 lab noted Assessment: 04/06/17 10:21 withdrawal sx Plan: continue detox
[2017-04-06] MEDS: PRENATAL VITAMINS W/ FOLIC ACID TABLET (FP) PO SCH (10:25)
[2017-04-06] MEDS: THIAMINE HCL 100 MG TABLET (FP) PO SCH (22:08)
[2017-04-06] MEDS: ZOLPIDEM TARTRATE 5 MG TABLET PO PRN (22:08)
[2017-04-07] MEDS ORDERED: METHADONE HCL 10 MG TABLET (FOR DETOX USE ONLY) PO ONE (10:00)
[2017-04-07] MEDS: PRENATAL VITAMINS W/ FOLIC ACID TABLET (FP) PO SCH (10:16)
--- NOTE | 2017-04-07 12:12 | PN ---
BHS Progress Note (SOAP) Subjective: mild sweat no tremor denies body aches Objective: 04/07/17 12:10 Vital Signs Temperature 97.7 F 04/07/17 10:29 Pulse Rate 75 04/07/17 10:29 Respiratory Rate 18 04/07/17 10:29 Blood Pressure 118/64 04/07/17 10:29 O2 Sat by Pulse Oximetry (%) Laboratory Last Values WBC 8.4 K/mm3 (4.0-10.0) 04/04/17 08:00 RBC 4.95 M/mm3 (4.00-5.60) 04/04/17 08:00 Hgb 14.1 GM/dL (11.7-16.9) 04/04/17 08:00 Hct 43.0 % (35.4-49) 04/04/17 08:00 MCV 86.8 fl (80-96) 04/04/17 08:00 MCH 28.4 pg (25.7-33.7) 04/04/17 08:00 MCHC 32.7 g/dl (32.0-35.9) 04/04/17 08:00 RDW 13.2 % (11.9-15.9) 04/04/17 08:00 Plt Count 184 K/MM3 (134-434) 04/04/17 08:00 MPV 10.4 fl (7.5-11.1) 04/04/17 08:00 Sodium 139 mmol/L (136-145) 04/04/17 08:00 Potassium 4.5 mmol/L (3.5-5.1) 04/04/17 08:00 Chloride 104 mmol/L (98-107) 04/04/17 08:00 Carbon Dioxide 32 mmol/L (21-32) 04/04/17 08:00 Anion Gap 3 (8-16) L 04/04/17 08:00 BUN 16 mg/dL (7-18) 04/04/17 08:00 Creatinine 1.2 mg/dL (0.7-1.3) 04/04/17 08:00 Creat Clearance w eGFR > 60 (>60) 04/04/17 08:00 Random Glucose 87 mg/dL (74-106) 04/04/17 08:00 Calcium 8.9 mg/dL (8.5-10.1) 04/04/17 08:00 Total Bilirubin 0.5 mg/dL (0.2-1.0) D 04/04/17 08:00 AST 16 U/L (15-37) 04/04/17 08:00 ALT 24 U/L (12-78) 04/04/17 08:00 Alkaline Phosphatase 65 U/L (45-117) 04/04/17 08:00 Total Protein 6.9 g/dl (6.4-8.2) 04/04/17 08:00 Albumin 4.0 g/dl (3.4-5.0) 04/04/17 08:00 Urine Color Yellow 04/03/17 09:57 Urine Appearance Clear 04/03/17 09:57 Urine pH 6.0 (5.0-8.0) 04/03/17 09:57 Ur Specific [place] 1.024 (1.001-1.035) 04/03/17 09:57 Urine Protein Negative (NEGATIVE) 04/03/17 09:57 Urine Glucose (UA) Negative (NEGATIVE) 04/03/17 09:57 Urine Ketones Negative (NEGATIVE) 04/03/17 09:57 Urine Blood Negative (NEGATIVE) 04/03/17 09:57 Urine Nitrite Negative (NEGATIVE) 04/03/17 09:57 Urine Bilirubin Negative (NEGATIVE) 04/03/17 09:57 Urine Urobilinogen Negative mg/dL (0.2-1.0) 04/03/17 09:57 Ur Leukocyte Esterase Negative (NEGATIVE) 04/03/17 09:57 RPR Titer Nonreactive (NONREACTIVE) 04/04/17 08:00 lab noted Assessment: 04/07/17 12:10 mild withdrawal sx Plan: medically supervised detox
[2017-04-07] MEDS: ZOLPIDEM TARTRATE 5 MG TABLET PO PRN (22:34)
[2017-04-07] MEDS: THIAMINE HCL 100 MG TABLET (FP) PO SCH (22:35)
[2017-04-08] MEDS ORDERED: METHADONE HCL 5 MG TABLET (FOR DETOX USE ONLY) PO ONE (06:00)
--- NOTE | 2017-04-08 08:45 | DS ---
[facility] Detox Discharge Summary Admission Date: 04/03/17 Discharge Date: 04/08/17 - History Present History: Opioid Dependence - Physical Exam Results Vital Signs: Vital Signs Temperature 97.3 F L 04/08/17 06:00 Pulse Rate 61 04/08/17 06:00 Respiratory Rate 18 04/08/17 06:00 Blood Pressure 109/62 04/08/17 06:00 O2 Sat by Pulse Oximetry (%) Pertinent Admission Physical Exam Findings: withdrawal sx Laboratory Last Values WBC 8.4 K/mm3 (4.0-10.0) 04/04/17 08:00 RBC 4.95 M/mm3 (4.00-5.60) 04/04/17 08:00 Hgb 14.1 GM/dL (11.7-16.9) 04/04/17 08:00 Hct 43.0 % (35.4-49) 04/04/17 08:00 MCV 86.8 fl (80-96) 04/04/17 08:00 MCH 28.4 pg (25.7-33.7) 04/04/17 08:00 MCHC 32.7 g/dl (32.0-35.9) 04/04/17 08:00 RDW 13.2 % (11.9-15.9) 04/04/17 08:00 Plt Count 184 K/MM3 (134-434) 04/04/17 08:00 MPV 10.4 fl (7.5-11.1) 04/04/17 08:00 Sodium 139 mmol/L (136-145) 04/04/17 08:00 Potassium 4.5 mmol/L (3.5-5.1) 04/04/17 08:00 Chloride 104 mmol/L (98-107) 04/04/17 08:00 Carbon Dioxide 32 mmol/L (21-32) 04/04/17 08:00 Anion Gap 3 (8-16) L 04/04/17 08:00 BUN 16 mg/dL (7-18) 04/04/17 08:00 Creatinine 1.2 mg/dL (0.7-1.3) 04/04/17 08:00 Creat Clearance w eGFR > 60 (>60) 04/04/17 08:00 Random Glucose 87 mg/dL (74-106) 04/04/17 08:00 Calcium 8.9 mg/dL (8.5-10.1) 04/04/17 08:00 Total Bilirubin 0.5 mg/dL (0.2-1.0) D 04/04/17 08:00 AST 16 U/L (15-37) 04/04/17 08:00 ALT 24 U/L (12-78) 04/04/17 08:00 Alkaline Phosphatase 65 U/L (45-117) 04/04/17 08:00 Total Protein 6.9 g/dl (6.4-8.2) 04/04/17 08:00 Albumin 4.0 g/dl (3.4-5.0) 04/04/17 08:00 Urine Color Yellow 04/03/17 09:57 Urine Appearance Clear 04/03/17 09:57 Urine pH 6.0 (5.0-8.0) 04/03/17 09:57 Ur Specific [place] 1.024 (1.001-1.035) 04/03/17 09:57 Urine Protein Negative (NEGATIVE) 04/03/17 09:57 Urine Glucose (UA) Negative (NEGATIVE) 04/03/17 09:57 Urine Ketones Negative (NEGATIVE) 04/03/17 09:57 Urine Blood Negative (NEGATIVE) 04/03/17 09:57 Urine Nitrite Negative (NEGATIVE) 04/03/17 09:57 Urine Bilirubin Negative (NEGATIVE) 04/03/17 09:57 Urine Urobilinogen Negative mg/dL (0.2-1.0) 04/03/17 09:57 Ur Leukocyte Esterase Negative (NEGATIVE) 04/03/17 09:57 RPR Titer Nonreactive (NONREACTIVE) 04/04/17 08:00 lab noted Vital Signs Temperature 97.3 F L 04/08/17 06:00 Pulse Rate 61 04/08/17 06:00 Respiratory Rate 18 04/08/17 06:00 Blood Pressure 109/62 04/08/17 06:00 O2 Sat by Pulse Oximetry (%) - Treatment Hospital Course: Detox Protocol Followed, Detoxed Safely, Responded well, Discharged Condition Good, Rehab Referral Accepted Patient has Accepted a Rehab Referral to: [facility] - Medication Discharge Medications: Ambulatory Orders NK [No Known Home Medication] 04/03/17 - Diagnosis (1) Opioid dependence with withdrawal Current Visit: No Status: Acute - AMA Did Patient Leave Against Medical Advice: No
[2017-04-08 11:37] VITALS: BP 139/77; PULSE 82; TEMP 98.2
== END 2017-04-08 09:00 | disposition home or self-care (01) | DRG 773 ==
LOC: YASAS 15:17 → Y6N 17:30
PROVIDERS: ADMIT Internal Medicine; ATTEND Internal Medicine
PROC: HZ2ZZZZ Detoxification Services for Substance Abuse Treatment (ICD-10-PCS; principal; 2017-04-03)
DX: F11.23 Opioid dependence with withdrawal (principal); F19.282 Other psychoactive substance dependence with psychoactive substance-induced sleep disorder; F19.24 Other psychoactive substance dependence with psychoactive substance-induced mood disorder; M54.5 Low back pain; G89.29 Other chronic pain; Z87.891 Personal history of nicotine dependence
CPT/HCPCS: 36415; 80053; 81003; 85027; 86593; 93005; 93010

== ENCOUNTER 2018-06-25 09:54 | Inpatient (IN) | payer OTHER ==
[2018-06-25 12:15] VITALS: BMI 24.4
--- NOTE | 2018-06-25 13:15 | HP ---
COWS - Scale Resting Pulse: 0= [place] 80 or Below Sweatin= Chills/Flushing Restless Observation: 0= Sits Still Pupil Size: 0= Normal to Room Light Bone or Joint Aches: 1= Mild Discomfort Runny Nose/ Eye Tearin= Runny Nose/Eyes GI Upset > 30mins: 2= Nausea/Diarrhea Tremor Observation: 2= Slight Tremor Visible Yawning Observation: 1= 1-2x During Session Anxiety or Irritability: 1=Feels Anxious/Irritable Goose Flesh Skin: 0=Smooth Skin COWS Score: 10 Admission ROS S - HPI Chief Complaint: I want to stop using, I'm tired Allergies/Adverse Reactions: Allergies Allergy/AdvReac Type Severity Reaction Status Date / Time No Known Drug Allergies Allergy Verified 04/27/17 19:11 History of Present Illness: 33 yo gentleman here for detox from opiates - last here 04/26/17 - states he went into rehab and stayed sober for a year. Denies overdose, denies black outs or seizure. Never on MAT (no methadone or suboxone), considering Vivitrol but trying to gain sobriety without using medications - counseled regarding same. Exam Limitations: Clinical Condition - Ebola screening Have you traveled outside of the country in the last 21 days: No (N) Have you had contact with anyone from an Ebola affected area: No Do you have a fever: No - Review of Systems Constitutional: Chills, Loss of Appetite, Malaise, Changes in sleep, Weakness EENT: reports: Blurred Vision, Tearing, Nose Congestion Respiratory: reports: No Symptoms reported Cardiac: reports: No Symptoms Reported GI: reports: Diarrhea, Nausea, Poor Appetite, Indigestion : reports: No Symptoms Reported Musculoskeletal: reports: Back Pain, Joint Pain, Muscle Pain Integumentary: reports: Flushing Neuro: reports: Headache Endocrine: reports: No Symptoms Reported Hematology: reports: No Symptoms Reported Psychiatric: reports: Judgement Intact, Mood/Affect Appropiate, Orientated x3, Anxious Other Systems: Reviewed and Negative Patient History - Patient Medical History Hx Anemia: No Hx Asthma: No Hx Chronic Obstructive Pulmonary Disease (COPD): No Hx Cancer: No Hx Cardiac Disorders: No Hx Congestive Heart Failure: No Hx Hypertension: No Hx Hypercholesterolemia: No Hx Pacemaker: No HX Cerebrovascular Accident: No Hx Seizures: No Hx Dementia: No Hx Diabetes: No Hx Gastrointestinal Disorders: No Hx Liver Disease: No Hx Genitourinary Disorders: No Hx Sexually Transmitted Disorders: No Hx Renal Disease (ESRD): No Hx Thyroid Disease: No Hx Human Immunodeficiency Virus (HIV): No Hx Hepatitis C: No Hx Depression: No Hx Suicide Attempt: No Hx Bipolar Disorder: No Hx Schizophrenia: No - Patient Surgical History Past Surgical History: No Hx Neurologic Surgery: No Hx Cataract Extraction: No Hx Cardiac Surgery: No Hx Lung Surgery: No Hx Breast Surgery: No Hx Breast Biopsy: No Hx Abdominal Surgery: No Hx Appendectomy: No Hx Cholecystectomy: No Hx Genitourinary Surgery: No Hx Section: No Hx Orthopedic Surgery: No Hx Hysterectomy: No Anesthesia Reaction: No - PPD History Previous Implant?: Yes Documented Results: Negative w/proof Implanted On Prior [facility] Admission?: Yes Date: 03/13/17 Results: 0 mm PPD to be Administered?: Yes - Reproductive History Patient is a Female of Child Bearing Age (11 -55 yrs old): No - Smoking Cessation Smoking history: Former smoker Have you smoked in the past 12 months: No Aproximately how many cigarettes per day: 0 If you are a former smoker, when did you quit?: 02/05/2012 Cigars Per Day: 0 Hx Chewing Tobacco Use: No Initiated information on smoking cessation: No - Substance & Tx. History Hx Alcohol Use: No Hx Substance Use: Yes Substance Use Type: Heroin, Opiates Hx Substance Use Treatment: Yes (detox,rehab) - Substances abused Heroin Substance route: Inhalation Frequency: Daily Amount used: 20 bags Age of first use: 17 Date of last use: 06/24/18 Family Disease History - Family Disease History Family Disease History: Diabetes: Mother (HTN, living), Heart Disease: Mother, Other: Father (living, healthy), Brother (Alive, healthy), Sister (Alive, healthy) Admission Physical Exam BHS - Vital Signs Vital Signs: Vital Signs - 24 hr 06/25/18 12:01 Temperature 97.9 F Pulse Rate 54 L Respiratory 16 Rate Blood Pressure 110/71 - Physical General Appearance: Yes: Nourished, Appropriately Dressed, Moderate Distress, Irritable, Anxious HEENTM: Yes: EOMI, Hearing grossly Normal, Normocephalic, Normal Voice, Pharynx Normal, Nasal Congestion Respiratory: Yes: Normal Breath Sounds, No Respiratory Distress Neck: Yes: No masses,lesions,Nodules Breast: Yes: Breast Exam Deferred Cardiology: Yes: Regular Rhythm, Regular Rate Abdominal: Yes: Flat, Soft Genitourinary: Yes: Within Normal Limits Back: Yes: Normal Inspection Musculoskeletal: Yes: full range of Motion, Gait Steady, Back pain, Muscle Pain Extremities: Yes: Normal Inspection, Normal Range of Motion, Non-Tender Neurological: Yes: Fully Oriented, Alert, Motor Strength 5/5, Normal Mood/Affect , Normal Response, Numbness Integumentary: Yes: Normal Color, Warm Lymphatic: Yes: Within Normal Limits - Diagnostic (1) Opioid dependence with withdrawal Current Visit: Yes Status: Chronic Cleared for Admission S - Detox or Rehab [facility] Level of Care: Medically Managed Detox Regimen/Protocol: Methadone Breathalyzer - Breathalyzer Breathalyzer: 0 Urine Drug Screen - Test Device Lot number: [id number] Expiration date: 01/22/20 - Control Is test valid?: Yes - Results Drug screen NEGATIVE: No Urine drug screen results: FEN-Fentanyl, MOP-Opiates Inpatient Rehab Admission - Rehab Decision to Admit Inpatient rehab admission?: No
[2018-06-25] MEDS ORDERED: IBUPROFEN 400 MG TABLET (FP) PO PRN (13:20)
[2018-06-25] MEDS ORDERED: MAG HYDROX/AL HYDROX/SIMETH 30 ML UNIT-DOSE CUP PO PRN (13:20)
[2018-06-25] MEDS ORDERED: MAGNESIUM HYDROX 2400MG/30ML ORAL SUSPENSION 30 ML CUP PO PRN (13:20)
[2018-06-25] MEDS ORDERED: METHOCARBAMOL 500 MG TABLET PO PRN (13:20)
[2018-06-25] MEDS ORDERED: ACETAMINOPHEN 325 MG TABLET (FP) PO PRN (13:20)
[2018-06-25] MEDS ORDERED: MENTHOL/PHENOL 1 EACH UD MM PRN (13:20)
[2018-06-25] MEDS ORDERED: BISMUTH SUBSALICYLATE 524 MG/30 ML UD PO PRN (13:20)
[2018-06-25] MEDS ORDERED: MAGNESIUM CITRATE 300 ML BOTTLE PO PRN (13:20)
[2018-06-25] MEDS ORDERED: cloNIDine HCL 0.1 MG TABLET PO PRN (13:20)
[2018-06-25] MEDS ORDERED: BACLOFEN 10 MG TABLET (FP) PO PRN (13:20)
[2018-06-25] MEDS ORDERED: ONDANSETRON *ODT* 4 MG TABLET SL PRN (13:20)
[2018-06-25] MEDS ORDERED: hydrOXYzine PAMOATE 25 MG CAPSULE (FP) PO PRN (13:20)
[2018-06-25] MEDS ORDERED: METHADONE HCL 10 MG TABLET (FOR DETOX USE ONLY) PO ONE ×2 (14:00→23:00)
--- NOTE | 2018-06-25 15:03 | PN ---
BHS Progress Note Note: PT REQUESTING FOR VALIUM PRN BECAUSE "THAT'S WHAT WORKED FOR ME THE LAST TIMES I 'VE BEEN HERE". PLAN:VALIUM 5 MG PO Q4H PRN FOR ANXIETY X 3 DAYS.
[2018-06-25] MEDS: diazePAM 5 MG TABLET PO PRN ×2 (15:11→22:13)
[2018-06-25] MEDS: THIAMINE HCL 100 MG TABLET (FP) PO SCH (22:13)
[2018-06-25] MEDS: MELATONIN 5 MG TABLETS PO PRN (22:13)
[2018-06-26] MEDS ORDERED: METHADONE HCL 10 MG TABLET (FOR DETOX USE ONLY) PO ONE (10:00)
[2018-06-26] MEDS: diazePAM 5 MG TABLET PO PRN ×3 (10:26→22:01)
[2018-06-26] MEDS: PRENATAL VITAMINS W/ FOLIC ACID TABLET (FP) PO SCH (10:26)
[2018-06-26 11:01] LABS: HEMATOCRIT 39.5 % (35.4-49); HEMOGLOBIN 13.5 GM/dL (11.7-16.9); MCH 29.2 pg (25.7-33.7); MCHC 34.3 g/dl (32.0-35.9); MEAN CELL VOLUME 85.1 fl (80-96); MEAN PLT VOLUME 10.2 fl (7.5-11.1); PLATELET COUNT 182 K/MM3 (134-434); RBC 4.64 M/mm3 (4.00-5.60); RDW 13.3 % (11.9-15.9); WHITE BLOOD COUNT 8.3 K/mm3 (4.0-10.0)
[2018-06-26 11:37] LABS: ALBUMIN 3.8 g/dl (3.4-5.0); ALK PHOS 56 U/L (45-117); ANION GAP 5 MMOL/L (8-16); BILIRUBIN,TOTAL 0.9 mg/dL (0.2-1); BLOOD UREA NITROGEN 11 mg/dL (7-18); CALCIUM 9.4 mg/dL (8.5-10.1); CHLORIDE 105 mmol/L (98-107); CO2 30 mmol/L (21-32); CREATININE 0.8 mg/dL (0.55-1.3); GLUCOSE,RANDOM 87 mg/dL (74-106); SGOT/AST 15 U/L (15-37); SGPT/ALT 20 U/L (13-61); SODIUM 139 mmol/L (136-145); TOT PROT 6.8 g/dl (6.4-8.2)
--- NOTE | 2018-06-26 12:02 | PN ---
BHS COWS - Scale Resting Pulse: 1= [place] 81-100 Sweatin= Chills/Flushing Restless Observation: 1= Difficult to Sit Still Pupil Size: 1= Pupils >than Normal Bone or Joint Aches: 1= Mild Discomfort Runny Nose/ Eye Tearin= Nasal Congestion GI Upset > 30mins: 0= None Tremor Observation of Outstretched Hands: 1= Tremor [place], Not Seen Yawning Observation: 0= None Anxiety or Irritability: 1=Feels Anxious/Irritable Goose Flesh Skin: 0=Smooth Skin COWS Score: 8 BHS Progress Note (SOAP) Subjective: doing well with valium prn and methadone detox regimen tired low energy Objective: 06/26/18 12:03 Vital Signs Temperature 97.7 F 06/26/18 09:26 Pulse Rate 84 06/26/18 09:26 Respiratory Rate 18 06/26/18 09:26 Blood Pressure 102/68 06/26/18 09:26 O2 Sat by Pulse Oximetry (%) Laboratory Last Values WBC 8.3 K/mm3 (4.0-10.0) 06/26/18 07:50 RBC 4.64 M/mm3 (4.00-5.60) 06/26/18 07:50 Hgb 13.5 GM/dL (11.7-16.9) 06/26/18 07:50 Hct 39.5 % (35.4-49) 06/26/18 07:50 MCV 85.1 fl (80-96) 06/26/18 07:50 MCH 29.2 pg (25.7-33.7) 06/26/18 07:50 MCHC 34.3 g/dl (32.0-35.9) 06/26/18 07:50 RDW 13.3 % (11.9-15.9) 06/26/18 07:50 Plt Count 182 K/MM3 (134-434) 06/26/18 07:50 MPV 10.2 fl (7.5-11.1) 06/26/18 07:50 Sodium 139 mmol/L (136-145) 06/26/18 07:50 Potassium 4.0 mmol/L (3.5-5.1) 06/26/18 07:50 Chloride 105 mmol/L (98-107) 06/26/18 07:50 Carbon Dioxide 30 mmol/L (21-32) 06/26/18 07:50 Anion Gap 5 MMOL/L (8-16) L 06/26/18 07:50 BUN 11 mg/dL (7-18) 06/26/18 07:50 Creatinine 0.8 mg/dL (0.55-1.3) 06/26/18 07:50 Creat Clearance w eGFR 112.03 (>60) 06/26/18 07:50 Random Glucose 87 mg/dL (74-106) 06/26/18 07:50 Calcium 9.4 mg/dL (8.5-10.1) 06/26/18 07:50 Total Bilirubin 0.9 mg/dL (0.2-1) 06/26/18 07:50 AST 15 U/L (15-37) 06/26/18 07:50 ALT 20 U/L (13-61) 06/26/18 07:50 Alkaline Phosphatase 56 U/L (45-117) 06/26/18 07:50 Total Protein 6.8 g/dl (6.4-8.2) 06/26/18 07:50 Albumin 3.8 g/dl (3.4-5.0) 06/26/18 07:50 lab noted Assessment: 06/26/18 12:03 opiate withdrawal sx Plan: continue detox
[2018-06-26] MEDS: THIAMINE HCL 100 MG TABLET (FP) PO SCH (22:00)
[2018-06-26] MEDS: MELATONIN 5 MG TABLETS PO PRN (22:01)
[2018-06-27] MEDS ORDERED: METHADONE HCL 10 MG TABLET (FOR DETOX USE ONLY) PO ONE (10:00)
[2018-06-27] MEDS: PRENATAL VITAMINS W/ FOLIC ACID TABLET (FP) PO SCH (10:12)
[2018-06-27] MEDS: diazePAM 5 MG TABLET PO PRN ×3 (10:13→21:26)
--- NOTE | 2018-06-27 11:44 | PN ---
BHS COWS - Scale Resting Pulse: 1= [place] 81-100 Sweatin= Chills/Flushing Restless Observation: 0= Sits Still Pupil Size: 0= Normal to Room Light Bone or Joint Aches: 1= Mild Discomfort Runny Nose/ Eye Tearin= None GI Upset > 30mins: 1= Stomach Cramp Tremor Observation of Outstretched Hands: 1= Tremor [place], Not Seen Yawning Observation: 0= None Anxiety or Irritability: 1=Feels Anxious/Irritable Goose Flesh Skin: 0=Smooth Skin COWS Score: 6 BHS Progress Note (SOAP) Subjective: feeling better today longest sobriety 4 + years through support community meeting Objective: 06/27/18 11:44 Vital Signs Temperature 97.6 F 06/27/18 09:22 Pulse Rate 81 06/27/18 09:22 Respiratory Rate 18 06/27/18 09:22 Blood Pressure 112/68 06/27/18 09:22 O2 Sat by Pulse Oximetry (%) Laboratory Last Values WBC 8.3 K/mm3 (4.0-10.0) 06/26/18 07:50 RBC 4.64 M/mm3 (4.00-5.60) 06/26/18 07:50 Hgb 13.5 GM/dL (11.7-16.9) 06/26/18 07:50 Hct 39.5 % (35.4-49) 06/26/18 07:50 MCV 85.1 fl (80-96) 06/26/18 07:50 MCH 29.2 pg (25.7-33.7) 06/26/18 07:50 MCHC 34.3 g/dl (32.0-35.9) 06/26/18 07:50 RDW 13.3 % (11.9-15.9) 06/26/18 07:50 Plt Count 182 K/MM3 (134-434) 06/26/18 07:50 MPV 10.2 fl (7.5-11.1) 06/26/18 07:50 Sodium 139 mmol/L (136-145) 06/26/18 07:50 Potassium 4.0 mmol/L (3.5-5.1) 06/26/18 07:50 Chloride 105 mmol/L (98-107) 06/26/18 07:50 Carbon Dioxide 30 mmol/L (21-32) 06/26/18 07:50 Anion Gap 5 MMOL/L (8-16) L 06/26/18 07:50 BUN 11 mg/dL (7-18) 06/26/18 07:50 Creatinine 0.8 mg/dL (0.55-1.3) 06/26/18 07:50 Creat Clearance w eGFR 112.03 (>60) 06/26/18 07:50 Random Glucose 87 mg/dL (74-106) 06/26/18 07:50 Calcium 9.4 mg/dL (8.5-10.1) 06/26/18 07:50 Total Bilirubin 0.9 mg/dL (0.2-1) 06/26/18 07:50 AST 15 U/L (15-37) 06/26/18 07:50 ALT 20 U/L (13-61) 06/26/18 07:50 Alkaline Phosphatase 56 U/L (45-117) 06/26/18 07:50 Total Protein 6.8 g/dl (6.4-8.2) 06/26/18 07:50 Albumin 3.8 g/dl (3.4-5.0) 06/26/18 07:50 RPR Titer Nonreactive (NONREACTIVE) 06/26/18 07:50 lab noted Assessment: 06/27/18 11:44 withdrawal sx 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
[2018-06-27] MEDS: THIAMINE HCL 100 MG TABLET (FP) PO SCH (21:24)
[2018-06-27] MEDS: MELATONIN 5 MG TABLETS PO PRN (21:26)
[2018-06-28] MEDS ORDERED: METHADONE HCL 10 MG TABLET (FOR DETOX USE ONLY) PO ONE (10:00)
[2018-06-28] MEDS: PRENATAL VITAMINS W/ FOLIC ACID TABLET (FP) PO SCH (10:14)
[2018-06-28] MEDS: diazePAM 5 MG TABLET PO PRN (10:14)
--- NOTE | 2018-06-28 13:42 | PN ---
BHS COWS - Scale Resting Pulse: 0= [place] 80 or Below Sweatin= No chills or Flushing Restless Observation: 0= Sits Still Pupil Size: 0= Normal to Room Light Bone or Joint Aches: 1= Mild Discomfort Runny Nose/ Eye Tearin= None GI Upset > 30mins: 0= None Tremor Observation of Outstretched Hands: 1= Tremor [place], Not Seen Yawning Observation: 0= None Anxiety or Irritability: 1=Feels Anxious/Irritable Goose Flesh Skin: 0=Smooth Skin COWS Score: 3 S Progress Note (SOAP) Subjective: feeling better today discuss medication assisted maintenance treatment program Objective: 06/28/18 13:48 Vital Signs Temperature 97.3 F L 06/28/18 13:06 Pulse Rate 62 06/28/18 13:06 Respiratory Rate 18 06/28/18 13:06 Blood Pressure 115/69 06/28/18 13:06 O2 Sat by Pulse Oximetry (%) Laboratory Last Values WBC 8.3 K/mm3 (4.0-10.0) 06/26/18 07:50 RBC 4.64 M/mm3 (4.00-5.60) 06/26/18 07:50 Hgb 13.5 GM/dL (11.7-16.9) 06/26/18 07:50 Hct 39.5 % (35.4-49) 06/26/18 07:50 MCV 85.1 fl (80-96) 06/26/18 07:50 MCH 29.2 pg (25.7-33.7) 06/26/18 07:50 MCHC 34.3 g/dl (32.0-35.9) 06/26/18 07:50 RDW 13.3 % (11.9-15.9) 06/26/18 07:50 Plt Count 182 K/MM3 (134-434) 06/26/18 07:50 MPV 10.2 fl (7.5-11.1) 06/26/18 07:50 Sodium 139 mmol/L (136-145) 06/26/18 07:50 Potassium 4.0 mmol/L (3.5-5.1) 06/26/18 07:50 Chloride 105 mmol/L (98-107) 06/26/18 07:50 Carbon Dioxide 30 mmol/L (21-32) 06/26/18 07:50 Anion Gap 5 MMOL/L (8-16) L 06/26/18 07:50 BUN 11 mg/dL (7-18) 06/26/18 07:50 Creatinine 0.8 mg/dL (0.55-1.3) 06/26/18 07:50 Creat Clearance w eGFR 112.03 (>60) 06/26/18 07:50 Random Glucose 87 mg/dL (74-106) 06/26/18 07:50 Calcium 9.4 mg/dL (8.5-10.1) 06/26/18 07:50 Total Bilirubin 0.9 mg/dL (0.2-1) 06/26/18 07:50 AST 15 U/L (15-37) 06/26/18 07:50 ALT 20 U/L (13-61) 06/26/18 07:50 Alkaline Phosphatase 56 U/L (45-117) 06/26/18 07:50 Total Protein 6.8 g/dl (6.4-8.2) 06/26/18 07:50 Albumin 3.8 g/dl (3.4-5.0) 06/26/18 07:50 RPR Titer Nonreactive (NONREACTIVE) 06/26/18 07:50 lab noted Assessment: 06/28/18 13:49 withdrawal sx Plan: continue detox
[2018-06-28 18:04] VITALS: PULSE 56
[2018-06-28] MEDS: THIAMINE HCL 100 MG TABLET (FP) PO SCH (22:45)
[2018-06-29] MEDS ORDERED: METHADONE HCL 5 MG TABLET (FOR DETOX USE ONLY) PO ONE (06:00)
[2018-06-29 06:27] VITALS: BP 102/65; TEMP 97.7
--- NOTE | 2018-06-29 15:02 | DS ---
[facility] Detox Discharge Summary Admission Date: 06/25/18 Discharge Date: 06/29/18 - History Present History: Opioid Dependence Additional Comments: 33 years old male admitted on 06/25/18 for opiate withdrawal stabilization completed detox regime aftercare community self help support grouping Pertinent Past History: bring in medication list and lab report to follow up appointment - Physical Exam Results Vital Signs: Vital Signs Temperature 97.7 F 06/29/18 06:27 Pulse Rate 56 L 06/29/18 06:27 Respiratory Rate 18 06/29/18 06:27 Blood Pressure 102/65 06/29/18 06:27 O2 Sat by Pulse Oximetry (%) Pertinent Admission Physical Exam Findings: opiate withdrawal sx Laboratory Last Values WBC 8.3 K/mm3 (4.0-10.0) 06/26/18 07:50 RBC 4.64 M/mm3 (4.00-5.60) 06/26/18 07:50 Hgb 13.5 GM/dL (11.7-16.9) 06/26/18 07:50 Hct 39.5 % (35.4-49) 06/26/18 07:50 MCV 85.1 fl (80-96) 06/26/18 07:50 MCH 29.2 pg (25.7-33.7) 06/26/18 07:50 MCHC 34.3 g/dl (32.0-35.9) 06/26/18 07:50 RDW 13.3 % (11.9-15.9) 06/26/18 07:50 Plt Count 182 K/MM3 (134-434) 06/26/18 07:50 MPV 10.2 fl (7.5-11.1) 06/26/18 07:50 Sodium 139 mmol/L (136-145) 06/26/18 07:50 Potassium 4.0 mmol/L (3.5-5.1) 06/26/18 07:50 Chloride 105 mmol/L (98-107) 06/26/18 07:50 Carbon Dioxide 30 mmol/L (21-32) 06/26/18 07:50 Anion Gap 5 MMOL/L (8-16) L 06/26/18 07:50 BUN 11 mg/dL (7-18) 06/26/18 07:50 Creatinine 0.8 mg/dL (0.55-1.3) 06/26/18 07:50 Creat Clearance w eGFR 112.03 (>60) 06/26/18 07:50 Random Glucose 87 mg/dL (74-106) 06/26/18 07:50 Calcium 9.4 mg/dL (8.5-10.1) 06/26/18 07:50 Total Bilirubin 0.9 mg/dL (0.2-1) 06/26/18 07:50 AST 15 U/L (15-37) 06/26/18 07:50 ALT 20 U/L (13-61) 06/26/18 07:50 Alkaline Phosphatase 56 U/L (45-117) 06/26/18 07:50 Total Protein 6.8 g/dl (6.4-8.2) 06/26/18 07:50 Albumin 3.8 g/dl (3.4-5.0) 06/26/18 07:50 RPR Titer Nonreactive (NONREACTIVE) 06/26/18 07:50 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
== END 2018-06-29 08:49 | disposition home or self-care (01) | DRG 773 ==
LOC: YASAS 09:54 → Y3N 13:48
PROVIDERS: ADMIT Surgery; ATTEND Surgery
PROC: HZ2ZZZZ Detoxification Services for Substance Abuse Treatment (ICD-10-PCS; principal; 2018-06-25)
DX: F11.23 Opioid dependence with withdrawal (principal); Z87.891 Personal history of nicotine dependence
CPT/HCPCS: 36415; 80053; 85027; 86593